=== PATIENT | male | born 1980 | race Hispanic/Latino ===

== ENCOUNTER 2024-08-22 11:29 | Emergency (ER) | payer SELFPAY ==
[~2024-08-22] VITALS: Ht 167.6 cm; Wt 81.6 kg
[2024-08-22] MEDS: ketOROlac 15MG/ML VIAL (15MG/ML) IM ONE (12:47)
[2024-08-22] MEDS ORDERED: TERB250T89 PO (13:05)
[2024-08-22 13:42] VITALS: BP 132/78; PULSE 62; RESP 17; TEMP 98.2; O2SAT 97
== END 2024-08-22 14:01 | disposition home or self-care (01) ==
LOC: EDH 11:29
DX: B35.1 Tinea unguium (principal); I10 Essential (primary) hypertension
CPT/HCPCS: 99283; 73630; 96372; J1885